=== PATIENT | male | born 1955 | race Caucasian/White ===

== ENCOUNTER → 2020-03-13 | Day surgery (SDC) | payer BC, OTHER ==
[2020-03-10 12:31] LABS: BASOPHILS # (AUTO) 0.1 (0.0-0.1); BASOPHILS % 0.8 % (0.0-1.0); EOSINOPHILS # (AUTO) 0.1 (0.0-0.4); EOSINOPHILS % 1.7 % (0.0-6.0); HEMATOCRIT 47.7 % (38.2-49.6); HEMOGLOBIN 15.7 g/dL (14.0-18.0); LYMPHOCYTES # (AUTO) 1.3 (1.0-3.2); LYMPHOCYTES % 22.2 % (18.0-39.1); MEAN CORPUSCULAR HGB CONC 32.9 g/dL (31-35); MONOCYTES # (AUTO) 0.5 (0.2-0.8); MONOCYTES % 8.8 % (4.4-11.3); NEUTROPHILS # (AUTO) 3.9 (2.1-6.9); NEUTROPHILS % 66.2 % (38.7-80.0); PLATELET COUNT 213 x10e3/uL (140-360); RED BLOOD COUNT 5.82 x10e6/uL (4.3-5.7); RED CELL DISTRIBUTION WIDTH 13.6 % (11.7-14.4)
--- NOTE | 2020-03-10 12:48 | Diagnostic Imaging Report ---
EXAMINATION: CHEST 2 VIEWS INDICATION: ^[id number] ^1211 ^PRE - OP COMPARISON: None FINDINGS: PA and lateral views TUBES and LINES: None. LUNGS: Lungs are well inflated. Lungs are clear. There is no evidence of pneumonia or pulmonary edema. PLEURA: No pleural effusion or pneumothorax. HEART AND MEDIASTINUM: The cardiomediastinal silhouette is unremarkable. BONES AND SOFT TISSUES: No acute osseous lesion. Soft tissues are unremarkable. UPPER ABDOMEN: No free air under the diaphragm. IMPRESSION: No acute thoracic radiographic abnormality. Signed by: Alvarez Lantigua MD on 03/10/2020 12:44 PM
[2020-03-10 12:57] LABS: ANION GAP 15.1 mmol/L (8-16); BLOOD UREA NITROGEN 14 mg/dL (7-26); BUN/CREATININE RATIO 17 (6-25); CALCIUM 9.7 mg/dL (8.4-10.2); CARBON DIOXIDE 24 mmol/L (22-29); CHLORIDE 103 mmol/L (98-107); CREATININE, SERUM 0.84 mg/dL (0.72-1.25); EST GLOMERULAR FILTRATION RATE > 60 ML/MIN (60-); GLUCOSE 89 mg/dL (74-118); POTASSIUM 5.1 mmol/L (3.5-5.1); SODIUM 137 mmol/L (136-145)
[~2020-03-13] MED LIST: ACETAMINOPHEN 1000 MG/100 ML IV ONE; ASPIRIN EC81 MG PO; ATORVASTATIN CA20 MG PO; BACITRACIN 50,000 UNIT VIAL ONE; BUPIVACAINE HCL 0.5% INJ 30 ML VIAL INJ ONE; CLINDAMYCIN PHOS 900MG/ 50ML 50 ML IV ONE; DEXAMETHASONE SOD PHOS INJ 4 MG/ML VIAL ONE; EPHEDRINE SULFATE INJ 50 MG/ML VIAL ONE; FENTANYL CITRATE/PF 100MCG/2 ML INJ ONE; FINASTERIDE5 MG PO; KETOROLAC TROMETHAMINE 30 MG/ML VIAL ONE; LIDOCAINE HCL 2% LOCAL INJ 5 ML SDV VIAL INJ ONE; LIPITOR20 MG PO; NEOSTIGMINE 1 MG/ML 10ML VIAL ONE; ONDANSETRON HCL INJ 2MG/ML 2ML 2 MG/ML VIAL ONE; PANTOPRAZOLE SO40 MG PO; PLAVIX75 MG PO; PROPOFOL IV EMULSION 10 MG/ML 20 ML VIAL ONE; SEVOFLURANE INHAL SOLN 250 ML PEN BTL ONE; ZOLOFT50 MG PO
[2020-03-13 10:30] VITALS: BP 142/95
--- NOTE | 2020-03-13 11:08 | Diagnostic Imaging Report ---
OR Fluoroscopy: IMPRESSION: Fluoroscopy service provided in the OR. Interpretation not requested. Signed by: Navin Milligan MD on 03/13/2020 11:05 AM
--- NOTE | 2020-03-13 14:28 | Operative Report ---
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 TITLE OF THE OPERATION: 1. Arthroplasty, 5th digit, right foot. 2. Arthroplasty, hallux, right foot. 3. Neurolysis, 3rd digit, right foot. 4. Excision of lesion, benign neoplasm, right hallux. 5. Excision bone spur, exostectomy, distal 5th digit, right foot. ANESTHESIA: General endotracheal. HEMOSTASIS: Right thigh tourniquet at 350 mmHg. PROCEDURE IN DETAIL: The patient was taken to the operating room in a mildly sedated state and placed on the operating table in supine position. Following induction of general anesthetic, the right lower extremity was elevated to 60 degrees to exsanguinate before inflating the pneumatic thigh tourniquet to 350 mmHg to create hemostasis. Right foot was prepped and draped in usual aseptic manner prior to performing following procedure: Procedure #1: Arthroplasty 5th digit, right foot. Two converging semi-elliptical incisions were made overlying the head of the proximal phalanx on the right 5th digit. Incision was deepened via sharp and blunt dissection down to the level of the dorsal capsular structure. Care was taken to identify and retract all vital structures encountered. The head of the 5th metatarsal was delivered in the surgical site and remodeled utilizing oscillating saw. The area was irrigated with copious amounts of sterile saline solution. A skin plasty was then performed when the tendon was repaired and the skin from the two semi-elliptical incisions was closed. It was noted that there was still yet a distal digital exostosis with large lesion on the distal medial aspect of the 5th digit. A separate incision with excisional biopsy was made and that skin lesion was sent to pathology. The underlying tissue was smoothed and irrigated with copious amounts of sterile saline solution. Deep closure was 3-0 Vicryl, skin closure 4-0 nylon. Attention was then directed to the right hallux for an arthroplasty, right hallux. The medial aspect of the right hallux was evaluated and noted to have a very large prominence. A two converging semi-elliptical incisions were made on the medial aspect, which allowed for dissection of the digit and the interphalangeal joint was identified and arthroplasty completed by removing the medial condyles of both the proximal and distal phalanx that have been accomplished. The area was irrigated and closed with 3-0 Vicryl, 4-0 nylon. Attention was directed to the large lesion present, which was excised with two semi-elliptical and closed over the interphalangeal joint and that area was sent to pathology as well. At this point, after closure with 3-0 Vicryl and 4-0 nylon, attention was directed to the 3rd intermetatarsal space of the right foot. Linear longitudinal incision was made overlying the 3rd intermetatarsal space. The superficial bleeders were electrocoagulated. The transverse intermetatarsal ligament was identified and transected sharply. The underlying tissues were identified and the lesions that were present were adhered to the large neuroma structure. There was a large neuroma sitting between the 3rd and 4th digits. This had distal extensions out to the 3rd and 4th digits. All were dissected free and an intraoperative decision was made that after neurolysis, the nerve tumor was still so large that it needed to be excised, so the entire neuroma was removed as well. The area was irrigated with copious amounts of sterile saline solution. A TLS drain was installed. Deep closure was 3-0 Vicryl after all superficial bleeders were electrocoagulated and 4-0 nylon. The remainder of the foot was then in healthy position confirmed with fluoroscopy. Released the pneumatic thigh tourniquet showed a normal hyperemic flush to all digits and the appropriate mildly compressive dressings were applied. The drain itself was installed and noted to be functional. The patient is to remain nonweightbearing in a CAM walker and return to see me within one week postoperatively. He was transferred from the OR to the PACU for recovery and his was informed on his nonweightbearing status for home discharge. BETITO Newell/SYED /[id number]
== END | disposition home or self-care (01) ==
LOC: OR 05:24
PROVIDERS: ATTEND Podiatrist Foot Surgery
DX: M20.41 Other hammer toe(s) (acquired), right foot (principal); G57.61 Lesion of plantar nerve, right lower limb; D23.71 Other benign neoplasm of skin of right lower limb, including hip; R00.1 Bradycardia, unspecified; K21.9 Gastro-esophageal reflux disease without esophagitis; I25.10 Atherosclerotic heart disease of native coronary artery without angina pectoris; I25.2 Old myocardial infarction; Z88.0 Allergy status to penicillin; Z01.810 Encounter for preprocedural cardiovascular examination; Z01.812 Encounter for preprocedural laboratory examination; Z01.818 Encounter for other preprocedural examination; Z11.59 Encounter for screening for other viral diseases; Z79.02 Long term (current) use of antithrombotics/antiplatelets; Z79.82 Long term (current) use of aspirin; Z95.5 Presence of coronary angioplasty implant and graft; Z87.01 Personal history of pneumonia (recurrent)
CPT/HCPCS: 11423; 28080; 28285 ×2; 36415; 71046; 80048; 85025; 87635; 88305; 93005; J0131; J1100; J1885; J2001; J2405; J2704; J2710; J3010; 88304

== ENCOUNTER 2020-10-14 08:06 | Inpatient (IN) | payer BC ==
[2020-10-09 13:28] LABS: BASOPHILS # (AUTO) 0.1 (0.0-0.1); EOSINOPHILS # (AUTO) 0.1 (0.0-0.4); EOSINOPHILS % 1.7 % (0.0-6.0); HEMATOCRIT 44.1 % (38.2-49.6); HEMOGLOBIN 14.1 g/dL (14.0-18.0); LYMPHOCYTES # (AUTO) 1.2 (1.0-3.2); LYMPHOCYTES % 20.3 % (18.0-39.1); MEAN CORPUSCULAR HEMOGLOBIN 26.4 pg (28-32); MEAN CORPUSCULAR VOLUME 82.4 fL (81-99); MONOCYTES # (AUTO) 0.4 (0.2-0.8); MONOCYTES % 7.4 % (4.4-11.3); NEUTROPHILS % 69.4 % (38.7-80.0); PLATELET COUNT 206 x10e3/uL (140-360); RED BLOOD COUNT 5.35 x10e6/uL (4.3-5.7); RED CELL DISTRIBUTION WIDTH 15.5 % (11.7-14.4)
[~2020-10-14] VITALS: Ht 182.9 cm; Wt 87.5 kg
[~2020-10-14 08:06] MED LIST changes: -ACETAMINOPHEN 1000 MG/100 ML IV ONE; -BACITRACIN 50,000 UNIT VIAL ONE; -BUPIVACAINE HCL 0.5% INJ 30 ML VIAL INJ ONE; -CLINDAMYCIN PHOS 900MG/ 50ML 50 ML IV ONE; -DEXAMETHASONE SOD PHOS INJ 4 MG/ML VIAL ONE; -EPHEDRINE SULFATE INJ 50 MG/ML VIAL ONE; -FENTANYL CITRATE/PF 100MCG/2 ML INJ ONE; -KETOROLAC TROMETHAMINE 30 MG/ML VIAL ONE; -LIDOCAINE HCL 2% LOCAL INJ 5 ML SDV VIAL INJ ONE; -NEOSTIGMINE 1 MG/ML 10ML VIAL ONE; +ONCE DAILY1 EACH PO; -ONDANSETRON HCL INJ 2MG/ML 2ML 2 MG/ML VIAL ONE; -PROPOFOL IV EMULSION 10 MG/ML 20 ML VIAL ONE; -SEVOFLURANE INHAL SOLN 250 ML PEN BTL ONE
[2020-10-14] MEDS ORDERED: PIPER-TAZ 3.375 GM 50 ML ONE (08:44)
[2020-10-14] MEDS ORDERED: GENTAMICIN 120MG/NS 100ML 100 ML ONE (08:45)
[2020-10-14] MEDS ORDERED: IOPAMIDOL 300MG/ML 50ML INFUS..BTL IV ONE (09:12)
[2020-10-14] MEDS ORDERED: B&O 60MG R/S 60 MG SUPP PR ONE (09:13)
[2020-10-14] MEDS ORDERED: LEVOFLOXACIN 500MG/D5W 100ML 100 ML IV ONE (09:25)
[2020-10-14] MEDS ORDERED: SEVOFLURANE INHAL SOLN 250 ML PEN BTL ONE (11:56)
[2020-10-14] MEDS ORDERED: LIDOCAINE HCL 2% JELLY 5 ML TUBE ONE (11:56)
[2020-10-14] MEDS ORDERED: DEXAMETHASONE SOD PHOS INJ 4 MG/ML VIAL ONE (11:56)
[2020-10-14] MEDS ORDERED: PROPOFOL IV EMULSION 10 MG/ML 20 ML VIAL ONE (11:56)
[2020-10-14] MEDS ORDERED: ONDANSETRON HCL INJ 2MG/ML 2ML 2 MG/ML VIAL ONE (11:56)
[2020-10-14] MEDS ORDERED: LIDOCAINE HCL 2% LOCAL INJ 5 ML SDV VIAL INJ ONE (11:56)
[2020-10-14] MEDS ORDERED: EPHEDRINE SULFATE INJ 50 MG/ML VIAL ONE (11:56)
[2020-10-14] MEDS ORDERED: FENTANYL CITRATE/PF 100MCG/2 ML INJ ONE ×2 (12:21→12:41)
[2020-10-14] MEDS ORDERED: ONDANSETRON HCL INJ 2MG/ML 2ML 2 MG/ML VIAL IV PRN (12:30)
[2020-10-14] MEDS ORDERED: B&O 60MG R/S 60 MG SUPP PR PRN (12:30)
[2020-10-14] MEDS ORDERED: DIPHENHYDRAMINE HCL 25 MG CAP PO PRN (12:30)
[2020-10-14] MEDS ORDERED: MIDAZOLAM HCL 2 MG/2 ML VIAL ONE (12:41)
[2020-10-14] MEDS ORDERED: HYDROMORPHONE 1MG/1ML INJ ONE (13:39)
[2020-10-14 13:52] LABS: BASOPHILS # (AUTO) 0.1 (0.0-0.1); EOSINOPHILS # (AUTO) 0.1 (0.0-0.4); EOSINOPHILS % 1.3 % (0.0-6.0); HEMATOCRIT 43.6 % (38.2-49.6); HEMOGLOBIN 13.4 g/dL (14.0-18.0); LYMPHOCYTES # (AUTO) 1.3 (1.0-3.2); LYMPHOCYTES % 21.2 % (18.0-39.1); MEAN CORPUSCULAR HEMOGLOBIN 26.8 pg (28-32); MEAN CORPUSCULAR HGB CONC 30.7 g/dL (31-35); MEAN CORPUSCULAR VOLUME 87.2 fL (81-99); MONOCYTES # (AUTO) 0.4 (0.2-0.8); NEUTROPHILS # (AUTO) 4.3 (2.1-6.9); NEUTROPHILS % 69.2 % (38.7-80.0); PLATELET COUNT 193 x10e3/uL (140-360); RED CELL DISTRIBUTION WIDTH 15.6 % (11.7-14.4)
[2020-10-14 14:23] LABS: ANION GAP 11.1 mmol/L (8-16); BLOOD UREA NITROGEN 11 mg/dL (7-26); BUN/CREATININE RATIO 15 (6-25); CALCIUM 8.1 mg/dL (8.4-10.2); CARBON DIOXIDE 22 mmol/L (22-29); CHLORIDE 110 mmol/L (98-107); CREATININE, SERUM 0.73 mg/dL (0.72-1.25); EST GLOMERULAR FILTRATION RATE > 60 ML/MIN (60-); GLUCOSE 77 mg/dL (74-118); POTASSIUM 4.1 mmol/L (3.5-5.1); SODIUM 139 mmol/L (136-145)
[2020-10-14 14:39] VITALS: BP 117/73
[2020-10-14 14:44] VITALS: BP 117/73
[2020-10-14] MEDS: D5.45%NS/KCL 20MEQ 1,000 ML IV SCH ×2 (15:15→22:13)
[2020-10-14] MEDS: DOCUSATE SODIUM 100 MG CAP PO SCH (17:18)
[2020-10-14] MEDS: PHENAZOPYRIDINE HCL 100 MG TAB PO PRN (19:49)
[2020-10-14 20:00] VITALS: BP 101/65
[2020-10-14] MEDS: ACETAMINOPHEN/CODEINE 300MG - 30MG TAB PO PRN (20:25)
[2020-10-15] VITALS (9 sets, daily range): BP systolic 101–137; BP diastolic 65–91
[2020-10-15] MEDS: ACETAMINOPHEN/CODEINE 300MG - 30MG TAB PO PRN ×2 (01:50→08:54)
[2020-10-15 05:54] LABS: BASOPHILS # (AUTO) 0.1 (0.0-0.1); BASOPHILS % 0.7 % (0.0-1.0); EOSINOPHILS # (AUTO) 0.1 (0.0-0.4); HEMATOCRIT 37.6 % (38.2-49.6); HEMOGLOBIN 11.8 g/dL (14.0-18.0); LYMPHOCYTES # (AUTO) 1.2 (1.0-3.2); LYMPHOCYTES % 15.7 % (18.0-39.1); MEAN CORPUSCULAR HEMOGLOBIN 26.6 pg (28-32); MEAN CORPUSCULAR HGB CONC 31.4 g/dL (31-35); MEAN CORPUSCULAR VOLUME 84.9 fL (81-99); MONOCYTES # (AUTO) 0.6 (0.2-0.8); MONOCYTES % 7.3 % (4.4-11.3); NEUTROPHILS # (AUTO) 5.8 (2.1-6.9); PLATELET COUNT 183 x10e3/uL (140-360); RED BLOOD COUNT 4.43 x10e6/uL (4.3-5.7); RED CELL DISTRIBUTION WIDTH 15.6 % (11.7-14.4)
[2020-10-15] MEDS: D5.45%NS/KCL 20MEQ 1,000 ML IV SCH ×3 (05:54→23:40)
[2020-10-15 06:29] LABS: ANION GAP 8.3 mmol/L (8-16); BLOOD UREA NITROGEN 11 mg/dL (7-26); BUN/CREATININE RATIO 15 (6-25); CALCIUM 7.8 mg/dL (8.4-10.2); CARBON DIOXIDE 24 mmol/L (22-29); CHLORIDE 108 mmol/L (98-107); CREATININE, SERUM 0.75 mg/dL (0.72-1.25); EST GLOMERULAR FILTRATION RATE > 60 ML/MIN (60-); GLUCOSE 113 mg/dL (74-118); POTASSIUM 4.3 mmol/L (3.5-5.1); SODIUM 136 mmol/L (136-145)
[2020-10-15] MEDS: PHENAZOPYRIDINE HCL 100 MG TAB PO PRN (08:54)
[2020-10-15] MEDS: DOCUSATE SODIUM 100 MG CAP PO SCH ×2 (08:58→17:34)
[2020-10-15] MEDS: LEVOFLOXACIN 500MG/D5W 100ML 100 ML IV SCH (10:30)
[2020-10-15] MEDS ORDERED: ONDANSETRON HCL 4 MG ORAL DISINTEGRATING TAB PO PRN (12:45)
[2020-10-16] VITALS: BP 118/77
[2020-10-16 04:00] VITALS: BP 123/84
[2020-10-16 06:17] LABS: BASOPHILS % 0.6 % (0.0-1.0); EOSINOPHILS # (AUTO) 0.1 (0.0-0.4); HEMATOCRIT 35.7 % (38.2-49.6); HEMOGLOBIN 11.5 g/dL (14.0-18.0); LYMPHOCYTES # (AUTO) 0.8 (1.0-3.2); LYMPHOCYTES % 15.6 % (18.0-39.1); MEAN CORPUSCULAR HEMOGLOBIN 27.2 pg (28-32); MEAN CORPUSCULAR HGB CONC 32.2 g/dL (31-35); MEAN CORPUSCULAR VOLUME 84.4 fL (81-99); MONOCYTES # (AUTO) 0.5 (0.2-0.8); MONOCYTES % 10.8 % (4.4-11.3); NEUTROPHILS # (AUTO) 3.5 (2.1-6.9); NEUTROPHILS % 70.8 % (38.7-80.0); PLATELET COUNT 162 x10e3/uL (140-360); RED BLOOD COUNT 4.23 x10e6/uL (4.3-5.7); RED CELL DISTRIBUTION WIDTH 15.5 % (11.7-14.4)
[2020-10-16 06:38] LABS: ANION GAP 7.9 mmol/L (8-16); BLOOD UREA NITROGEN < 5 mg/dL (7-26); BUN/CREATININE RATIO 7 (6-25); CARBON DIOXIDE 28 mmol/L (22-29); CHLORIDE 106 mmol/L (98-107); CREATININE, SERUM 0.71 mg/dL (0.72-1.25); EST GLOMERULAR FILTRATION RATE > 60 ML/MIN (60-); GLUCOSE 112 mg/dL (74-118); POTASSIUM 3.9 mmol/L (3.5-5.1); SODIUM 138 mmol/L (136-145)
[2020-10-16] MEDS: D5.45%NS/KCL 20MEQ 1,000 ML IV SCH (06:45)
[2020-10-16 08:23] VITALS: BP 113/78
[2020-10-16 08:35] VITALS: BP 113/78
[2020-10-16] MEDS: DOCUSATE SODIUM 100 MG CAP PO SCH (09:00)
[2020-10-16] MEDS ORDERED: PANTOPRAZOLE SOD 40 MG TABEC PO PRN (09:45)
[2020-10-16] MEDS: LEVOFLOXACIN 500MG/D5W 100ML 100 ML IV SCH (10:07)
[2020-10-16 12:00] VITALS: BP 109/78
[2020-10-16] MEDS ORDERED: LEVOFLOXACIN250 MG PO ×2 (12:03→12:04)
[2020-10-16] MEDS ORDERED: [UNRECOGNIZED DRUG - REMARK] (12:03)
[2020-10-16] MEDS ORDERED: ACETAMINOPHEN PO (12:07)
[2020-10-16] MEDS ORDERED: CODEINE PO (12:07)
[2020-10-16] MEDS ORDERED: ATORVASTATIN 40 MG TAB PO SCH (21:00)
[2020-10-17] MEDS ORDERED: CLOPIDOGREL BISULFATE 75 MG TAB PO SCH (09:00)
[2020-10-17] MEDS ORDERED: MULTIVITAMINS/MINERALS TAB PO SCH (09:00)
[2020-10-17] MEDS ORDERED: ASPIRIN 81 MG ENTERIC COATED PO SCH (09:00)
[2020-10-17] MEDS ORDERED: MULTIVITAMIN PO SCH (09:00)
[2020-10-17] MEDS ORDERED: FINASTERIDE 5 MG TAB PO SCH (09:00)
== END 2020-10-16 12:30 | disposition home or self-care (01) | DRG 713 ==
LOC: OR 08:06 → PACU V 12:22 → MED/SURG 14:17
PROC: 0VB08ZX Excision of Prostate, Via Natural or Artificial Opening Endoscopic, Diagnostic (ICD-10-PCS; 2020-10-14)
PROC: 0VB07ZZ Excision of Prostate, Via Natural or Artificial Opening (ICD-10-PCS; principal; 2020-10-14 10:30)
PROC: 0T788ZZ Dilation of Bilateral Ureters, Via Natural or Artificial Opening Endoscopic (ICD-10-PCS; 2020-10-14 10:30)
PROC: BT141ZZ Fluoroscopy of Kidneys, Ureters and Bladder using Low Osmolar Contrast (ICD-10-PCS; 2020-10-14 10:30)
DX: N40.1 Benign prostatic hyperplasia with lower urinary tract symptoms (principal); N13.8 Other obstructive and reflux uropathy; R39.14 Feeling of incomplete bladder emptying; R97.20 Elevated prostate specific antigen [PSA]; Z20.828 Contact with and (suspected) exposure to other viral communicable diseases; I25.10 Atherosclerotic heart disease of native coronary artery without angina pectoris; E78.5 Hyperlipidemia, unspecified; Z87.891 Personal history of nicotine dependence; K21.9 Gastro-esophageal reflux disease without esophagitis; M19.049 Primary osteoarthritis, unspecified hand; Z85.828 Personal history of other malignant neoplasm of skin
CPT/HCPCS: 36415; 74420; 76872; 76998; 80048; 83735; 85025; 88305; 93005; C1758; C1769; J1100; J1170; J1580; J1956; J2001; J2250; J2405; J2543; J3010; U0002

== ENCOUNTER → 2022-01-31 | Outpatient (CLI) | payer BC ==
[~2022-01-31] MED LIST changes: +ACETAMINOPHEN PO; +CODEINE PO; +IOPAMIDOL 370 MG/ML 200 ML INFUS..BTL INJ ONE; +LEVOFLOXACIN250 MG PO; +SODIUM CHLORIDE 0.9% 250ML 250 ML ONE; +[UNRECOGNIZED DRUG - REMARK]
[2022-01-31 11:45] LABS: CREATININE, SERUM 0.84 mg/dL (0.72-1.25)
== END ==
LOC: CT 11:01
PROVIDERS: ATTEND Urology
DX: R31.0 Gross hematuria (principal)
CPT/HCPCS: 36415; 74178; 82565; 84520; J7050; Q9967

== ENCOUNTER 2022-03-14 05:58 | Inpatient (IN) | payer BC ==
[2022-03-11 10:02] LABS: BASOPHILS # (AUTO) 0.1 (0.0-0.1); EOSINOPHILS # (AUTO) 0.1 (0.0-0.4); HEMOGLOBIN 14.5 g/dL (14.0-18.0); LYMPHOCYTES # (AUTO) 1.1 (1.0-3.2); LYMPHOCYTES % 21.5 % (18.0-39.1); MEAN CORPUSCULAR HEMOGLOBIN 27.6 pg (28-32); MEAN CORPUSCULAR HGB CONC 32.2 g/dL (31-35); MEAN CORPUSCULAR VOLUME 85.6 fL (81-99); MONOCYTES # (AUTO) 0.4 (0.2-0.8); MONOCYTES % 7.7 % (4.4-11.3); NEUTROPHILS # (AUTO) 3.3 (2.1-6.9); NEUTROPHILS % 67.2 % (38.7-80.0); PLATELET COUNT 185 x10e3/uL (140-360); RED BLOOD COUNT 5.26 x10e6/uL (4.3-5.7); RED CELL DISTRIBUTION WIDTH 14.1 % (11.7-14.4)
[2022-03-11 10:32] LABS: ANION GAP 10.5 mmol/L (8-16); CALCIUM 8.8 mg/dL (8.4-10.2); CREATININE, SERUM 0.82 mg/dL (0.72-1.25); POTASSIUM 4.5 mmol/L (3.5-5.1)
[~2022-03-14] VITALS: Ht 182.9 cm; Wt 94.3 kg
[~2022-03-14 05:58] MED LIST changes: +DOXAZOSIN MESYLA2 MG PO; +GENTAMICIN 80MG/NS 100 ML 200 ML IV ONE; -IOPAMIDOL 370 MG/ML 200 ML INFUS..BTL INJ ONE; +LEVOFLOXACIN 500MG/D5W 100ML 100 ML IV ONE; +METOPROLOL SUCC25 MG PO; +SODIUM CHLORIDE 0.9% 1000ML 1,000 ML ONE; -SODIUM CHLORIDE 0.9% 250ML 250 ML ONE
[2022-03-14] MEDS ORDERED: IOPAMIDOL 300MG/ML 50ML INFUS..BTL IV ONE (06:23)
[2022-03-14] MEDS ORDERED: B&O 60MG R/S 60 MG SUPP PR ONE (06:23)
[2022-03-14] MEDS ORDERED: B&O 60MG R/S 60 MG SUPP PR PRN (08:15)
[2022-03-14] MEDS ORDERED: PHENAZOPYRIDINE HCL 100 MG TAB PO PRN ×2 (08:15)
[2022-03-14] MEDS ORDERED: ONDANSETRON HCL INJ 2MG/ML 2ML 2 MG/ML VIAL IV PRN (08:15)
[2022-03-14] MEDS ORDERED: DIPHENHYDRAMINE HCL 25 MG CAP PO PRN (08:15)
[2022-03-14 08:31] LABS: BASOPHILS % 0.9 % (0.0-1.0); EOSINOPHILS # (AUTO) 0.1 (0.0-0.4); EOSINOPHILS % 2.3 % (0.0-6.0); HEMATOCRIT 42.2 % (38.2-49.6); HEMOGLOBIN 13.5 g/dL (14.0-18.0); LYMPHOCYTES # (AUTO) 0.7 (1.0-3.2); LYMPHOCYTES % 19.6 % (18.0-39.1); MEAN CORPUSCULAR HEMOGLOBIN 27.4 pg (28-32); MEAN CORPUSCULAR VOLUME 85.6 fL (81-99); MONOCYTES # (AUTO) 0.2 (0.2-0.8); MONOCYTES % 6.4 % (4.4-11.3); NEUTROPHILS # (AUTO) 2.4 (2.1-6.9); NEUTROPHILS % 70.5 % (38.7-80.0); PLATELET COUNT 144 x10e3/uL (140-360); RED BLOOD COUNT 4.93 x10e6/uL (4.3-5.7); RED CELL DISTRIBUTION WIDTH 14.1 % (11.7-14.4)
[2022-03-14 08:50] LABS: ANION GAP 9.9 mmol/L (8-16); CALCIUM 7.7 mg/dL (8.4-10.2); CREATININE, SERUM 0.8 mg/dL (0.72-1.25); POTASSIUM 3.9 mmol/L (3.5-5.1)
[2022-03-14 09:38] VITALS: BP 127/83
[2022-03-14 09:39] VITALS: BP 127/83
[2022-03-14] MEDS: DOCUSATE SODIUM 100 MG CAP PO SCH ×2 (09:58→16:18)
[2022-03-14 10:08] VITALS: BP 127/83
[2022-03-14] MEDS: SODIUM CHLORIDE 0.9% 1000ML 1,000 ML IV SCH (10:22)
[2022-03-14 11:43] VITALS: BP 119/73
[2022-03-14] MEDS ORDERED: LIDOCAINE HCL 2% LOCAL INJ 5 ML SDV VIAL INJ ONE (12:04)
[2022-03-14] MEDS ORDERED: SEVOFLURANE INHAL SOLN 250 ML PEN BTL ONE (12:04)
[2022-03-14] MEDS ORDERED: POVIDONE IODINE 0.05% 0.05 % ML PO ONE (12:04)
[2022-03-14] MEDS ORDERED: DEXAMETHASONE SOD PHOS INJ 4 MG/ML SDV ONE (12:04)
[2022-03-14] MEDS ORDERED: ONDANSETRON HCL INJ 2MG/ML 2ML 2 MG/ML VIAL ONE (12:04)
[2022-03-14] MEDS ORDERED: PROPOFOL IV EMULSION 10 MG/ML 20 ML VIAL ONE (12:04)
[2022-03-14] MEDS ORDERED: MIDAZOLAM HCL 2 MG/2 ML VIAL ONE (12:18)
[2022-03-14] MEDS ORDERED: FENTANYL CITRATE/PF 100MCG/2 ML INJ ONE (12:18)
[2022-03-14 16:21] VITALS: BP 119/75
[2022-03-14] MEDS: HYDROCODONE/APAP 5MG-325MG TAB PO PRN (16:43)
[2022-03-14 20:00] VITALS: BP 117/74
[2022-03-15] VITALS (8 sets, daily range): BP systolic 116–132; BP diastolic 72–83
[2022-03-15] MEDS: SODIUM CHLORIDE 0.9% 1000ML 1,000 ML IV SCH ×3 (00:19→16:37)
[2022-03-15] MEDS: HYDROCODONE/APAP 5MG-325MG TAB PO PRN (00:33)
[2022-03-15 05:45] LABS: BASOPHILS # (AUTO) 0.1 (0.0-0.1); BASOPHILS % 0.5 % (0.0-1.0); EOSINOPHILS # (AUTO) 0.1 (0.0-0.4); EOSINOPHILS % 1.4 % (0.0-6.0); HEMATOCRIT 42.3 % (38.2-49.6); HEMOGLOBIN 13.5 g/dL (14.0-18.0); LYMPHOCYTES % 10.5 % (18.0-39.1); MEAN CORPUSCULAR HEMOGLOBIN 27.7 pg (28-32); MEAN CORPUSCULAR HGB CONC 31.9 g/dL (31-35); MEAN CORPUSCULAR VOLUME 86.9 fL (81-99); MONOCYTES # (AUTO) 0.6 (0.2-0.8); MONOCYTES % 6.7 % (4.4-11.3); NEUTROPHILS # (AUTO) 7.4 (2.1-6.9); NEUTROPHILS % 80.7 % (38.7-80.0); PLATELET COUNT 177 x10e3/uL (140-360); RED BLOOD COUNT 4.87 x10e6/uL (4.3-5.7)
[2022-03-15 06:10] LABS: ANION GAP 9.2 mmol/L (8-16); CALCIUM 7.9 mg/dL (8.4-10.2); CREATININE, SERUM 0.82 mg/dL (0.72-1.25); POTASSIUM 4.2 mmol/L (3.5-5.1)
[2022-03-15] MEDS: LEVOFLOXACIN 500MG/D5W 100ML 100 ML IV SCH (07:50)
[2022-03-15] MEDS: DOXAZOSIN MESYLATE 2 MG TAB PO SCH (07:54)
[2022-03-15] MEDS: METOPROLOL SUCCINATE 25 MG TAB XL PO SCH (07:55)
[2022-03-15] MEDS: PANTOPRAZOLE SOD 40 MG TABEC PO SCH (07:55)
[2022-03-15] MEDS: DOCUSATE SODIUM 100 MG CAP PO SCH ×2 (07:55→16:37)
[2022-03-15] MEDS ORDERED: ASPIRIN 81 MG ENTERIC COATED PO SCH (09:00)
[2022-03-15] MEDS ORDERED: MULTIVITAMIN PO SCH (09:00)
[2022-03-15] MEDS ORDERED: MULTIVITAMINS/MINERALS TAB PO SCH (09:00)
[2022-03-15] MEDS: DIPHENHYDRAMINE HCL 25 MG CAP PO PRN ×2 (10:55→17:21)
[2022-03-15] MEDS: ATORVASTATIN 40 MG TAB PO SCH (22:27)
[2022-03-16] VITALS (7 sets, daily range): BP systolic 114–149; BP diastolic 72–96
[2022-03-16 05:06] LABS: BASOPHILS # (AUTO) 0.1 (0.0-0.1); EOSINOPHILS # (AUTO) 0.3 (0.0-0.4); EOSINOPHILS % 5.6 % (0.0-6.0); HEMATOCRIT 43.9 % (38.2-49.6); HEMOGLOBIN 13.9 g/dL (14.0-18.0); LYMPHOCYTES # (AUTO) 1.4 (1.0-3.2); LYMPHOCYTES % 22.6 % (18.0-39.1); MEAN CORPUSCULAR HEMOGLOBIN 27.5 pg (28-32); MEAN CORPUSCULAR HGB CONC 31.7 g/dL (31-35); MEAN CORPUSCULAR VOLUME 86.9 fL (81-99); MONOCYTES # (AUTO) 0.5 (0.2-0.8); MONOCYTES % 7.5 % (4.4-11.3); NEUTROPHILS # (AUTO) 3.8 (2.1-6.9); NEUTROPHILS % 63.1 % (38.7-80.0); PLATELET COUNT 150 x10e3/uL (140-360); RED BLOOD COUNT 5.05 x10e6/uL (4.3-5.7); RED CELL DISTRIBUTION WIDTH 14.2 % (11.7-14.4)
[2022-03-16] MEDS: DIPHENHYDRAMINE HCL 25 MG CAP PO PRN ×2 (05:50→19:47)
[2022-03-16] MEDS: SODIUM CHLORIDE 0.9% 1000ML 1,000 ML IV SCH ×2 (05:50→19:10)
[2022-03-16 05:57] LABS: ANION GAP 9.8 mmol/L (8-16); CALCIUM 7.7 mg/dL (8.4-10.2); CREATININE, SERUM 0.8 mg/dL (0.72-1.25); POTASSIUM 3.8 mmol/L (3.5-5.1)
[2022-03-16] MEDS: DOCUSATE SODIUM 100 MG CAP PO SCH ×2 (08:47→17:04)
[2022-03-16] MEDS: DOXAZOSIN MESYLATE 2 MG TAB PO SCH (08:47)
[2022-03-16] MEDS: PANTOPRAZOLE SOD 40 MG TABEC PO SCH (08:48)
[2022-03-16] MEDS: METOPROLOL SUCCINATE 25 MG TAB XL PO SCH (08:48)
[2022-03-16] MEDS: LEVOFLOXACIN 500MG/D5W 100ML 100 ML IV SCH (08:48)
[2022-03-16] MEDS ORDERED: ONDANSETRON HCL 4 MG ORAL DISINTEGRATING TAB PO PRN (13:30)
[2022-03-16] MEDS: ATORVASTATIN 40 MG TAB PO SCH (20:14)
[2022-03-17 00:48] VITALS: BP 128/77
[2022-03-17 05:03] LABS: BASOPHILS % 0.7 % (0.0-1.0); EOSINOPHILS # (AUTO) 0.4 (0.0-0.4); HEMATOCRIT 43.5 % (38.2-49.6); LYMPHOCYTES # (AUTO) 1.2 (1.0-3.2); LYMPHOCYTES % 19.8 % (18.0-39.1); MEAN CORPUSCULAR HEMOGLOBIN 27.3 pg (28-32); MEAN CORPUSCULAR HGB CONC 32.2 g/dL (31-35); MEAN CORPUSCULAR VOLUME 84.8 fL (81-99); MONOCYTES # (AUTO) 0.5 (0.2-0.8); NEUTROPHILS # (AUTO) 3.8 (2.1-6.9); NEUTROPHILS % 64.2 % (38.7-80.0); PLATELET COUNT 161 x10e3/uL (140-360); RED BLOOD COUNT 5.13 x10e6/uL (4.3-5.7); RED CELL DISTRIBUTION WIDTH 13.9 % (11.7-14.4)
[2022-03-17 05:30] LABS: ANION GAP 12.8 mmol/L (8-16); CALCIUM 7.9 mg/dL (8.4-10.2); CREATININE, SERUM 0.79 mg/dL (0.72-1.25); POTASSIUM 3.8 mmol/L (3.5-5.1)
[2022-03-17 05:35] VITALS: BP 135/88
[2022-03-17] MEDS: DIPHENHYDRAMINE HCL 25 MG CAP PO PRN (06:42)
[2022-03-17] MEDS ORDERED: LEVOFLOXACIN 500 MG TAB PO SCH (07:00)
[2022-03-17 08:00] VITALS: BP 147/80
[2022-03-17 08:33] VITALS: BP 147/80
[2022-03-17] MEDS: DOCUSATE SODIUM 100 MG CAP PO SCH ×2 (09:07→16:08)
[2022-03-17] MEDS: PANTOPRAZOLE SOD 40 MG TABEC PO SCH (09:07)
[2022-03-17] MEDS: METOPROLOL SUCCINATE 25 MG TAB XL PO SCH (09:08)
[2022-03-17] MEDS: DOXAZOSIN MESYLATE 2 MG TAB PO SCH (09:09)
[2022-03-17 11:39] VITALS: BP 120/81
[2022-03-17 16:10] VITALS: BP 113/72
[2022-03-17] MEDS ORDERED: CIPRO500 MG PO (16:48)
== END 2022-03-17 18:15 | disposition home or self-care (01) | DRG 713 ==
LOC: OR 05:58 → PACU V 08:24 → MED/SURG 08:57
PROC: BT141ZZ Fluoroscopy of Kidneys, Ureters and Bladder using Low Osmolar Contrast (ICD-10-PCS; 2022-03-14)
PROC: 0T7D8ZZ Dilation of Urethra, Via Natural or Artificial Opening Endoscopic (ICD-10-PCS; principal; 2022-03-14 07:12)
PROC: 0V508ZZ Destruction of Prostate, Via Natural or Artificial Opening Endoscopic (ICD-10-PCS; 2022-03-14 07:12)
DX: N40.1 Benign prostatic hyperplasia with lower urinary tract symptoms (principal); N13.8 Other obstructive and reflux uropathy; R39.14 Feeling of incomplete bladder emptying; R35.1 Nocturia; N20.0 Calculus of kidney; N28.1 Cyst of kidney, acquired; N32.81 Overactive bladder; N35.919 Unspecified urethral stricture, male, unspecified site; N35.912 Unspecified bulbous urethral stricture, male; Z20.822 Contact with and (suspected) exposure to COVID-19; I10 Essential (primary) hypertension
CPT/HCPCS: 36415; 71046; 74420; 80048; 83735; 85025; 93005; 94799; C1758; J1100; J1580; J1956; J2001; J2250; J2405; J3010; J7030; U0002

== ENCOUNTER 2022-03-19 21:59 | Emergency (ER) | payer BC ==
[~2022-03-19] VITALS: Ht 182.9 cm; Wt 94.3 kg
[~2022-03-19 21:59] MED LIST changes: +CIPRO500 MG PO; -GENTAMICIN 80MG/NS 100 ML 200 ML IV ONE; -LEVOFLOXACIN 500MG/D5W 100ML 100 ML IV ONE; -SODIUM CHLORIDE 0.9% 1000ML 1,000 ML ONE
== END 2022-03-19 23:25 | disposition home or self-care (01) ==
LOC: ER 22:09
DX: M79.662 Pain in left lower leg (principal); E78.5 Hyperlipidemia, unspecified; I25.10 Atherosclerotic heart disease of native coronary artery without angina pectoris; K21.9 Gastro-esophageal reflux disease without esophagitis; M13.862 Other specified arthritis, left knee; M13.861 Other specified arthritis, right knee; Z95.5 Presence of coronary angioplasty implant and graft; Z85.828 Personal history of other malignant neoplasm of skin
CPT/HCPCS: 93971; 99283

== ENCOUNTER 2022-04-21 18:55 | Emergency (ER) | payer BC, MEDICARE ==
[~2022-04-21] VITALS: Ht 182.9 cm; Wt 94.3 kg
[2022-04-21] MEDS ORDERED: SODIUM CHLORIDE FLUSH 10 ML SYR INJ PRN (19:30)
[2022-04-21 19:45] LABS: BASOPHILS # (AUTO) 0.1 (0.0-0.1); EOSINOPHILS # (AUTO) 0.4 (0.0-0.4); EOSINOPHILS % 4.7 % (0.0-6.0); HEMOGLOBIN 14.6 g/dL (14.0-18.0); LYMPHOCYTES # (AUTO) 1.5 (1.0-3.2); LYMPHOCYTES % 18.8 % (18.0-39.1); MEAN CORPUSCULAR HEMOGLOBIN 27.5 pg (28-32); MEAN CORPUSCULAR HGB CONC 32.4 g/dL (31-35); MEAN CORPUSCULAR VOLUME 84.7 fL (81-99); MONOCYTES # (AUTO) 0.6 (0.2-0.8); MONOCYTES % 8.1 % (4.4-11.3); NEUTROPHILS # (AUTO) 5.3 (2.1-6.9); PLATELET COUNT 215 x10e3/uL (140-360); RED BLOOD COUNT 5.31 x10e6/uL (4.3-5.7); RED CELL DISTRIBUTION WIDTH 13.5 % (11.7-14.4)
[2022-04-21 19:49] LABS: CLARITY,URINE CLEAR (CLEAR); COLOR,URINE YELLOW (YELLOW); KETONES,URINE NEGATIVE (NEGATIVE); LEUKOCYTE ESTERASE ,URINE TRACE (NEGATIVE); NITRITE,URINE NEGATIVE (NEGATIVE); PROTEIN,URINE DIPSTICK NEGATIVE (NEGATIVE); URINE UROBILINOGEN 0.2 mg/dL (0.2 - 1)
[2022-04-21 20:00] LABS: BACTERIA,URINE RARE /HPF; RBC,URINE 0-5 /HPF (0-5)
[2022-04-21 20:03] LABS: ALBUMIN 3.7 g/dL (3.5-5.0); ALBUMIN/GLOBULIN RATIO 1.1 (0.8-2.0); ANION GAP 15.8 mmol/L (8-16); CALCIUM 8.6 mg/dL (8.4-10.2); CREATININE, SERUM 0.81 mg/dL (0.72-1.25); POTASSIUM 3.8 mmol/L (3.5-5.1)
[2022-04-21 23:11] LABS: CREATINE KINASE 171 IU/L (30-200)
== END 2022-04-22 00:13 | disposition home or self-care (01) ==
LOC: ER 19:28
DX: R42 Dizziness and giddiness (principal); R07.89 Other chest pain; R00.2 Palpitations; R35.0 Frequency of micturition; R61 Generalized hyperhidrosis; I25.10 Atherosclerotic heart disease of native coronary artery without angina pectoris; Z95.5 Presence of coronary angioplasty implant and graft; Z88.0 Allergy status to penicillin; Z79.82 Long term (current) use of aspirin; Z79.899 Other long term (current) drug therapy
CPT/HCPCS: 36415; 70450; 80053; 81001; 82550; 82553; 84484; 85025; 93005; 99284

== ENCOUNTER → 2023-03-29 | Outpatient (CLI) | payer MEDICARE | LOC: RAD 12:02 | PROVIDERS: ATTEND Internal Medicine | DX: M54.50 Low back pain, unspecified (principal); M25.512 Pain in left shoulder | CPT/HCPCS: 72110 ==

== ENCOUNTER → 2024-02-28 | Outpatient (REF) | payer MEDICARE | LOC: US 08:32 | PROVIDERS: ATTEND Urology | DX: N20.0 Calculus of kidney (principal); N28.1 Cyst of kidney, acquired | CPT/HCPCS: 74018; 76770 ==

== ENCOUNTER → 2024-09-17 | Day surgery (SDC) | payer MEDICARE ==
[2024-09-10 11:41] LABS: BASOPHILS # (AUTO) 0.1 (0.0-0.1); BASOPHILS % 1.2 % (0.0-1.0); EOSINOPHILS # (AUTO) 0.2 (0.0-0.4); EOSINOPHILS % 2.8 % (0.0-6.0); HEMATOCRIT 46.9 % (38.2-49.6); HEMOGLOBIN 14.5 g/dL (14.0-18.0); LYMPHOCYTES # (AUTO) 1.1 (1.0-3.2); LYMPHOCYTES % 19.6 % (18.0-39.1); MEAN CORPUSCULAR HEMOGLOBIN 26.1 pg (28-32); MEAN CORPUSCULAR HGB CONC 30.9 g/dL (31-35); MEAN CORPUSCULAR VOLUME 84.5 fL (81-99); MONOCYTES # (AUTO) 0.6 (0.2-0.8); MONOCYTES % 9.7 % (4.4-11.3); NEUTROPHILS # (AUTO) 3.8 (2.1-6.9); NEUTROPHILS % 66.5 % (38.7-80.0); PLATELET COUNT 189 x10e3/uL (140-360); RED BLOOD COUNT 5.55 x10e6/uL (4.3-5.7); RED CELL DISTRIBUTION WIDTH 14.2 % (11.7-14.4); WHITE BLOOD COUNT 5.67 x10e3/uL (4.8-10.8)
[2024-09-10 11:56] LABS: ANION GAP 13.8 mmol/L (8-16); CALCIUM 9.5 mg/dL (8.4-10.2); CREATININE, SERUM 0.97 mg/dL (0.72-1.25); POTASSIUM 4.8 mmol/L (3.5-5.1)
[~2024-09-17] MED LIST changes: +ACETAMINOPHEN-1 EAC4 PO; +BUPIVACAINE HCL 0.5% 10ML MPF VIAL INJ ONE; +CARVEDILOL12.5 MG PO; +CLOPIDOGREL75 MG PO; +FENTANYL CITRATE/PF 100MCG/2 ML INJ ONE; +KETOROLAC TROMETHAMINE 30 MG/ML VIAL ONE; +LIDOCAINE HCL 2% LOCAL INJ 5 ML SDV VIAL INJ ONE; +LOSARTAN-HCTZ1 EACH PO; +MIDAZOLAM HCL 2 MG/2 ML VIAL ONE; +MUPIROCIN 2% OINT 22 GM TUBE ONE; +ONDANSETRON HCL INJ 2MG/ML 2ML 2 MG/ML VIAL ONE; +PROPOFOL IV EMULSION 10 MG/ML 20 ML VIAL ONE
[2024-09-17] MEDS: LACTATED RINGER'S 1,000 ML ONE (05:52)
[2024-09-17] MEDS: CLINDAMYCIN 600MG / 50ML 50 ML IV ONE (05:52)
[2024-09-17 07:21] VITALS: TEMP 97.8
[2024-09-17 08:10] VITALS: BP 126/78; PULSE 65; RESP 16; O2SAT 95
== END | disposition home or self-care (01) ==
LOC: OR 05:12
PROVIDERS: ATTEND Plastic Surgery
DX: M65.321 Trigger finger, right index finger (principal); I25.10 Atherosclerotic heart disease of native coronary artery without angina pectoris; I10 Essential (primary) hypertension; E78.5 Hyperlipidemia, unspecified; K21.9 Gastro-esophageal reflux disease without esophagitis; Z88.0 Allergy status to penicillin; Z01.810 Encounter for preprocedural cardiovascular examination; Z01.812 Encounter for preprocedural laboratory examination; Z01.818 Encounter for other preprocedural examination; Z79.82 Long term (current) use of aspirin; Z79.02 Long term (current) use of antithrombotics/antiplatelets; Z79.899 Other long term (current) drug therapy; Z85.828 Personal history of other malignant neoplasm of skin; Z95.5 Presence of coronary angioplasty implant and graft
CPT/HCPCS: 26055; 36415; 71046; 80048; 85025; 93005; J1885; J2003; J2250; J2405; J2704; J3010; J7121

== ENCOUNTER → 2024-10-18 | Day surgery (SDC) | payer MEDICARE ==
[2024-10-14 08:11] LABS: BASOPHILS # (AUTO) 0.1 (0.0-0.1); BASOPHILS % 1.1 % (0.0-1.0); EOSINOPHILS # (AUTO) 0.2 (0.0-0.4); EOSINOPHILS % 3.4 % (0.0-6.0); HEMATOCRIT 45.2 % (38.2-49.6); HEMOGLOBIN 13.9 g/dL (14.0-18.0); LYMPHOCYTES # (AUTO) 1.3 (1.0-3.2); LYMPHOCYTES % 24.1 % (18.0-39.1); MEAN CORPUSCULAR HEMOGLOBIN 26.3 pg (28-32); MEAN CORPUSCULAR HGB CONC 30.8 g/dL (31-35); MEAN CORPUSCULAR VOLUME 85.6 fL (81-99); MONOCYTES # (AUTO) 0.6 (0.2-0.8); MONOCYTES % 10.3 % (4.4-11.3); NEUTROPHILS # (AUTO) 3.2 (2.1-6.9); NEUTROPHILS % 60.9 % (38.7-80.0); PLATELET COUNT 185 x10e3/uL (140-360); RED BLOOD COUNT 5.28 x10e6/uL (4.3-5.7); RED CELL DISTRIBUTION WIDTH 14.6 % (11.7-14.4); WHITE BLOOD COUNT 5.32 x10e3/uL (4.8-10.8)
[~2024-10-18] MED LIST changes: -BUPIVACAINE HCL 0.5% 10ML MPF VIAL INJ ONE; -FENTANYL CITRATE/PF 100MCG/2 ML INJ ONE; +GLYCOPYRROLATE INJ 0.2 MG/ML VIAL ONE; -KETOROLAC TROMETHAMINE 30 MG/ML VIAL ONE; +LIDOCAINE HCL 2% LOCAL 20 ML VIAL ONE; -LIDOCAINE HCL 2% LOCAL INJ 5 ML SDV VIAL INJ ONE; -MIDAZOLAM HCL 2 MG/2 ML VIAL ONE; -MUPIROCIN 2% OINT 22 GM TUBE ONE; -ONDANSETRON HCL INJ 2MG/ML 2ML 2 MG/ML VIAL ONE; +PHENYLEPHRINE HCL 1% 10 MG/ML VIAL ONE; -PROPOFOL IV EMULSION 10 MG/ML 20 ML VIAL ONE; +SODIUM CHLORIDE 0.9% 100 ML ONE
[2024-10-18] MEDS: LACTATED RINGER'S 1,000 ML ONE (08:26)
[2024-10-18 10:14] VITALS: TEMP 97.4
[2024-10-18 10:40] VITALS: BP 119/73; PULSE 63; RESP 16; O2SAT 97
== END | disposition home or self-care (01) ==
LOC: OR 07:17
PROVIDERS: ATTEND Internal Medicine Gastroenterology
DX: K29.50 Unspecified chronic gastritis without bleeding (principal); D12.2 Benign neoplasm of ascending colon; K20.90 Esophagitis, unspecified without bleeding; K44.9 Diaphragmatic hernia without obstruction or gangrene; K57.30 Diverticulosis of large intestine without perforation or abscess without bleeding; K64.8 Other hemorrhoids; G47.33 Obstructive sleep apnea (adult) (pediatric); I25.10 Atherosclerotic heart disease of native coronary artery without angina pectoris; I10 Essential (primary) hypertension; E78.5 Hyperlipidemia, unspecified; G57.90 Unspecified mononeuropathy of unspecified lower limb; Z88.0 Allergy status to penicillin; Z01.810 Encounter for preprocedural cardiovascular examination; Z01.812 Encounter for preprocedural laboratory examination; Z79.02 Long term (current) use of antithrombotics/antiplatelets; Z79.82 Long term (current) use of aspirin; Z79.899 Other long term (current) drug therapy; Z95.5 Presence of coronary angioplasty implant and graft
CPT/HCPCS: 36415; 43239; 45380; 45385; 85025; 88305; 93005; J2003; J2371; J2470; J7050; J7121; 45378

== ENCOUNTER → 2025-03-20 | Outpatient (REF) | payer MEDICARE ==
[~2025-03-20] MED LIST changes: -GLYCOPYRROLATE INJ 0.2 MG/ML VIAL ONE; -LIDOCAINE HCL 2% LOCAL 20 ML VIAL ONE; -PHENYLEPHRINE HCL 1% 10 MG/ML VIAL ONE; -SODIUM CHLORIDE 0.9% 100 ML ONE
== END ==
LOC: US 07:38
PROVIDERS: ATTEND Urology
DX: N28.1 Cyst of kidney, acquired (principal); R31.21 Asymptomatic microscopic hematuria
CPT/HCPCS: 74018; 76770; 76857